=== PATIENT | male | born 1970 ===

== ENCOUNTER 2021-05-11 19:38 | Emergency (ER) | payer SELFPAY ==
--- NOTE | 2021-05-11 21:35 | EDM.PDOC ---
ED HPI GENERAL MEDICAL PROBLEM - General Chief Complaint: ENT Problem Stated Complaint: EARPLUG STUCK IN EAR Time Seen by Provider: 05/11/21 19:50 Source of Information: Reports: Patient History Limitations: Reports: No Limitations - History of Present Illness INITIAL COMMENTS - FREE TEXT/NARRATIVE: Pt. states that he thinks he has an earplug stuck in his L ear. He states that he was using a compressed air source to blow debris off of his body at work, and states that the jet of air entered into his L ear. He states that he was wearing earplugs and thinks the force pushed the plug in farther. He states that his hearing is muffled in this ear. Denies any ear bleeding or discharge. Denies any involvement of the R ear. Onset: Today Location: Reports: Head - Related Data Allergies Allergy/AdvReac Type Severity Reaction Status Date / Time aspirin Allergy Itching Verified 05/11/21 19:45 Home Meds: Home Meds . [Unable to Verify Home Med List] 05/11/21 [History] ED ROS GENERAL - Review of Systems Review Of Systems: Comprehensive ROS is negative, except as noted in HPI. ED EXAM, GENERAL - Physical Exam Exam: See Below Exam Limited By: No Limitations General Appearance: Alert, WD/WN, No Apparent Distress Ears: Normal External Exam, Normal Canal, Other (Diminished hearing on L according to pt.) Ear Exam: Left Ear: Erythema (Mild erythema to L TM), Bilateral Ear: Other (Clear fluid behind both TMs) Departure - Departure Time of Disposition: 20:40 Disposition: Home, Self-Care 01 Clinical Impression: Fluid collection of middle ear - Discharge Information Instructions: Pseudoephedrine tablets, Ear Barotrauma, Adult Referrals: PCP,None [Primary Care Provider] - Forms: ED Department Discharge Additional Instructions: Pseudoephedrine 30mg 1 tab every 6 hours as needed for ear fullness. You can also take over the counter antihistamines as needed as well. Recheck in clinic in 7-10 days if not gradually improving. - Problem List Review Problem List Initiated/Reviewed/Updated: Yes - Assessment/Plan Assessment:: fluid behind L TM, possible mild barotrauma. Plan: Pt. was discharged. There was not foreign body noted in either ear canal. There was some clear fluid noted in the middle ear bilaterally. Possibly this could be giving the patient some sensation of plugged ear on the left, or he has some mild barotrauma to the ear. Advise to start either some pseudophedrine or an antihistamine to help clear the middle ear. Advised to follow-up in clinic in 7- 10 days if not gradually improving.
== END 2021-05-11 20:20 | disposition home or self-care (01) ==
LOC: LL.ED 19:38
DX: H93.92 Unspecified disorder of left ear (principal); Z88.8 Allergy status to other drugs, medicaments and biological substances
CPT/HCPCS: 99282; 99283